=== PATIENT | female | born 1985 | race African-American/Black ===

== ENCOUNTER 2016-04-24 19:40 | Emergency (ER) ==
[2016-04-24 21:09] LABS: MANUAL DIFF NEEDED? NO
[2016-04-24 21:11] LABS: BASO% 0.2 % (0.0-0.8); EOS# 0.04 X1000 (0.0-0.7); EOS% 0.5 % (0.0-10.0); HEMATOCRIT 34.7 % (37.0-47.0); HEMOGLOBIN 11.6 g/dL (12.0-16.0); IMM GRAN# 0.04 X1000 (0.0-0.04); IMM GRAN% 0.5 % (0.0-0.5); LYMPH# 2.73 X1000 (1.2-3.4); LYMPH% 31.5 % (20.5-51.1); MCH 30.9 PG (27-31); MCHC 33.4 g/dL (33-37); MCV 92.5 FL (81-99); MONO# 0.68 X1000 (0.11-0.59); MONO% 7.8 % (1.7-9.3); MPV 9.9 FL (7.4-10.4); NEUT% 59.5 % (42.2-75.2); PLT 350 X1000 (130-400); RBC 3.75 XMIL (4.2-5.4)
--- NOTE | 2016-04-24 21:25 | PROVIDER DOCUMENTATION ---
HPI-General Adult - General Chief Complaint: Dizziness Stated Complaint: FERNANDES, NECK/ABD/RT LEG PAIN Time Seen by Provider: 04/24/16 20:50 Source: patient Allergies/Adverse Reactions: Patient Allergies Allergy/AdvReac Type Severity Reaction Status Date / Time No Known Allergies Allergy Verified 01/09/16 20:08 Home Medications: Home Medication List Medication Instructions Recorded Confirmed Last Taken Type Amoxicillin/Pot Clavulanate 875 mg PO Q12HR #14 tablet 01/09/16 Unknown Rx [Augmentin] Cetirizine [Zyrtec] 10 mg PO DAILY #20 tablet 01/09/16 Unknown Rx Methylprednisolone [Medrol Dosepak] 4 mg PO DIRECTED #1 package 01/09/16 Unknown Rx Docusate Sodium [Colace] 100 mg PO BID PRN PRN #20 capsule 04/24/16 Unknown Rx Phenazopyridine HCl [Pyridium] 100 mg PO TID #6 tablet 04/24/16 Unknown Rx Polyethylene Glycol 3350 [Miralax] 17 gm PO DAILY #14 powd.pack 04/24/16 Unknown Rx Sulfamethoxazole/Trimethoprim 1 each PO BID #14 tablet 04/24/16 Unknown Rx [Bactrim Ds Tablet] - History of Present Illness -Gen Adult Nature of Presenting Problems: 30 y/o F c/o FERNANDES, abd. pain, intermittent dizziness x 2-3 months. Pt states has nexplanon in place in [facility] and does not have the money to get it removed at this time- states should have been removed in early April. States generalized abd. pain. Denies . No other sxs at this time. FERNANDES is frontal in nature. States metromenorrhagia, but has had that for several years. Review of Systems - Adult - REVIEW OF SYSTEMS - ADULT Constitutional: reports: no symptoms reported. denies: chills, fever Eyes: reports: no symptoms reported. denies: blurred vision, double vision Ears, Nose, Mouth & Throat: reports: no symptoms reported. denies: ear pain, nose pain Cardiovascular: reports: no symptoms reported. denies: chest pain, palpitations Respiratory: reports: no symptoms reported. denies: dyspnea on exertion, shortness of breath Gastrointestinal: reports: see HPI, abdominal pain. denies: nausea, vomiting Genitourinary: reports: no symptoms reported. denies: dysuria, frequency Musculoskeletal: reports: no symptoms reported. denies: joint pain, joint swelling Integumentary: reports: no symptoms reported. denies: nail changes, rash Neurological: reports: see HPI, dizziness/vertigo, headache/migraines. denies: numbness, paresthesia Psychiatric: reports: no symptoms reported Endocrine: reports: no symptoms reported. denies: cold intolerance, heat intolerance Hematologic/Lymphatic: reports: no symptoms reported. denies: easy bruising, prolonged bleeding Allergic/Immunologic: reports: no symptoms reported All Other Systems: Reviewed and Negative Past History - Adult - PAST MEDICAL HISTORY-ADULT Review of Records: reports: Nursing Assessment Review, Medications Reviewed - SOCIAL HISTORY Smoking: cigarettes, less than 1 pack/day Provider spent 3-5 mins advising pt. on dangers of tobacco.: Discussed manners to quit use, and f/u contacts for add'l counseling. Physical Exam-General - PHYSICAL EXAM-ADULT Initial Vital Signs Reviewed: Yes - CONSTITUTIONAL General Appearance: alert, mild distress - EYES Eyes: pink conjunctivae - HEAD, EARS, NOSE, MOUTH & THROAT HENMT: normocephalic/atraumatic, moist mucous membranes - NECK Neck: normal inspection - RESPIRATORY Respiratory: lungs clear, normal breath sounds. negative: crackles, rales, rhonchi, stridor, wheezing - CARDIOVASCULAR Cardiovascular: regular rate, rhythm. negative: bradycardia, tachycardia - GASTROINTESTINAL (ABDOMEN) Abdominal Exam: normal bowel sounds, non tender, soft. negative: distended, guarding, rigid - MUSCULOSKELETAL Back Exam: normal inspection Extremity: normal gait - SKIN Integumentary: normal color, normal turgor, warm/dry - NEUROLOGIC Neurologic: exhaust tender II-XII nml as tested, grossly normal. negative: aphasia, EOM palsy, facial droop, focal weakness, motor weakness - PSYCHIATRIC Psych/Mental Status: normal mood/affect, normal thought content, normal thought process, oriented x 3 Progress - PLAN OF CARE/RESULTS Progress/Plan/Lab Results: Laboratory Tests 04/24/16 04/24/16 04/24/16 21:01 21:01 21:30 WBC 8.68 RBC 3.75 L Hgb 11.6 L Hct 34.7 L MCV 92.5 MCH 30.9 MCHC 33.4 RDW Std Deviation 12.8 Plt Count 350 MPV 9.9 Immature Gran % (Auto) 0.5 Neut % (Auto) 59.5 Lymph % (Auto) 31.5 [place] % (Auto) 7.8 Eos % (Auto) 0.5 Baso % (Auto) 0.2 Immature Gran # (Auto) 0.04 Neut # (Auto) 5.17 Lymph # (Auto) 2.73 [place] # (Auto) 0.68 H Eos # (Auto) 0.04 Baso # (Auto) 0.02 Sodium 139 Potassium 3.7 Chloride 103 Carbon Dioxide 22 L Anion Gap 14 BUN 12 Creatinine 0.7 Estimated GFR/1.73 m2 > 60 BUN/Creatinine Ratio 17 Glucose 101 POC Glucose Calculated Osmolality 277 Calcium 8.8 Total Bilirubin 0.27 AST 16 ALT 9 L Alkaline Phosphatase 97 Total Protein 7.6 Albumin 4.2 Globulin 3.4 Albumin/Globulin Ratio 1.2 Urine Source CLEAN CATCH Urine Color STRAW Urine Turbidity CLEAR Urine pH 6.5 Ur Specific [place] 1.008 Urine Protein NEGATIVE Ur Glucose (Stick) NEGATIVE Ur Ketones (Stick) NEGATIVE Urine Blood NEGATIVE Urine Nitrite NEGATIVE Urine Bilirubin NEGATIVE Urobilinogen Dipstick NORMAL Urine Leukocytes MODERATE A Urine WBC (Auto) 10-20 A Urine RBC (Auto) <10 U Epithel Cells (Auto) <10 Urine Bacteria (Auto) 2+ Urine Test Urine Opiates Screen Ur Oxycodone Screen Ur Methadone, Qual Ur Barbiturates Screen Ur Phencyclidine Scrn Ur Amphetamines Screen U Benzodiazepines Scrn Urine Cocaine Screen U Cannabinoids Screen 04/24/16 04/24/16 04/24/16 21:30 21:30 21:52 WBC RBC Hgb Hct MCV MCH MCHC RDW Std Deviation Plt Count MPV Immature Gran % (Auto) Neut % (Auto) Lymph % (Auto) [place] % (Auto) Eos % (Auto) Baso % (Auto) Immature Gran # (Auto) Neut # (Auto) Lymph # (Auto) [place] # (Auto) Eos # (Auto) Baso # (Auto) Sodium Potassium Chloride Carbon Dioxide Anion Gap BUN Creatinine Estimated GFR/1.73 m2 BUN/Creatinine Ratio Glucose POC Glucose 84 Calculated Osmolality Calcium Total Bilirubin AST ALT Alkaline Phosphatase Total Protein Albumin Globulin Albumin/Globulin Ratio Urine Source Urine Color Urine Turbidity Urine pH Ur Specific [place] Urine Protein Ur Glucose (Stick) Ur Ketones (Stick) Urine Blood Urine Nitrite Urine Bilirubin Urobilinogen Dipstick Urine Leukocytes Urine WBC (Auto) Urine RBC (Auto) U Epithel Cells (Auto) Urine Bacteria (Auto) Urine Test NEGATIVE Urine Opiates Screen NONE DETECTED Ur Oxycodone Screen NONE DETECTED Ur Methadone, Qual NONE DETECTED Ur Barbiturates Screen NONE DETECTED Ur Phencyclidine Scrn NONE DETECTED Ur Amphetamines Screen NONE DETECTED U Benzodiazepines Scrn NONE DETECTED Urine Cocaine Screen NONE DETECTED U Cannabinoids Screen NONE DETECTED Orders Category Date Time Status ED: Orthostatic Vital Signs (E as directed Care 04/24/16 21:02 Active FLAT/UPRIGHT ABD/1 VIEW CHEST [RAD] Stat Exams 04/24/16 22:33 Completed CBC WITH ELECTRONIC DIFF [HEME] Stat Lab 04/24/16 21:01 Completed COMPREHENSIVE METABOLIC PANEL [CHEM] Stat Lab 04/24/16 21:01 Completed TEST-URINE [PREG] Stat Lab 04/24/16 21:30 Completed URINALYSIS W/POSS RFLX CULT [URINALYSIS] Stat Lab 04/24/16 21:30 Completed URINE CULTURE [RM] Routine Lab 04/25/16 00:10 Results URINE DRUG SCREEN Stat Lab 04/24/16 21:30 Completed Butalbital/APAP/Caffeine [Fioricet] Med 04/25/16 00:00 Discontinued 1 each PO NOW ONE Promethazine [Phenergan] Med 04/25/16 00:00 Discontinued 25 mg PO NOW ONE Sulfamethoxazole/Tmp D.s. [Septra Ds] Med 04/25/16 00:00 Discontinued 1 each PO NOW ONE Vital Signs Temp Pulse Pulse Pulse Pulse Resp BP 04/24/16 23:57 92 H 18 159/98 04/24/16 21:51 80 73 78 04/24/16 19:55 98.9 F 102 H 16 171/113 BP BP BP Pulse Ox 04/24/16 23:57 100 04/24/16 21:51 169/89 171/101 182/94 04/24/16 19:55 100 No Known Allergies Allergy (Verified 01/09/16 20:08) Amoxicillin/Pot Clavulanate [Augmentin] 875 mg PO Q12HR #14 tablet 01/09/16 Cetirizine [Zyrtec] 10 mg PO DAILY #20 tablet 01/09/16 Methylprednisolone [Medrol Dosepak] 4 mg PO DIRECTED #1 package 01/09/16 Docusate Sodium [Colace] 100 mg PO BID PRN PRN #20 capsule 04/24/16 Phenazopyridine HCl [Pyridium] 100 mg PO TID #6 tablet 04/24/16 Polyethylene Glycol 3350 [Miralax] 17 gm PO DAILY #14 powd.pack 04/24/16 Sulfamethoxazole/Trimethoprim [Bactrim Ds Tablet] 1 each PO BID #14 tablet 04/24 I&O 04/25/16 04/26/16 04/27/16 06:59 06:59 06:59 Output Total 85 Balance -85 Laboratory 04/24/16 04/24/16 04/24/16 21:52 21:30 21:30 WBC RBC Hgb Hct MCV MCH MCHC RDW Std Deviation Plt Count MPV Immature Gran % (Auto) Neut % (Auto) Lymph % (Auto) [place] % (Auto) Eos % (Auto) Baso % (Auto) Immature Gran # (Auto) Neut # (Auto) Lymph # (Auto) [place] # (Auto) Eos # (Auto) Baso # (Auto) Sodium Potassium Chloride Carbon Dioxide Anion Gap BUN Creatinine Estimated GFR/1.73 m2 BUN/Creatinine Ratio Glucose POC Glucose 84 Calculated Osmolality Calcium Total Bilirubin AST ALT Alkaline Phosphatase Total Protein Albumin Globulin Albumin/Globulin Ratio Urine Source Urine Color Urine Turbidity Urine pH Ur Specific [place] Urine Protein Ur Glucose (Stick) Ur Ketones (Stick) Urine Blood Urine Nitrite Urine Bilirubin Urobilinogen Dipstick Urine Leukocytes Urine WBC (Auto) Urine RBC (Auto) U Epithel Cells (Auto) Urine Bacteria (Auto) Urine Test NEGATIVE Urine Opiates Screen NONE DETECTED Ur Oxycodone Screen NONE DETECTED Ur Methadone, Qual NONE DETECTED Ur Barbiturates Screen NONE DETECTED Ur Phencyclidine Scrn NONE DETECTED Ur Amphetamines Screen NONE DETECTED U Benzodiazepines Scrn NONE DETECTED Urine Cocaine Screen NONE DETECTED U Cannabinoids Screen NONE DETECTED 04/24/16 04/24/16 04/24/16 21:30 21:01 21:01 WBC 8.68 RBC 3.75 L Hgb 11.6 L Hct 34.7 L MCV 92.5 MCH 30.9 MCHC 33.4 RDW Std Deviation 12.8 Plt Count 350 MPV 9.9 Immature Gran % (Auto) 0.5 Neut % (Auto) 59.5 Lymph % (Auto) 31.5 [place] % (Auto) 7.8 Eos % (Auto) 0.5 Baso % (Auto) 0.2 Immature Gran # (Auto) 0.04 Neut # (Auto) 5.17 Lymph # (Auto) 2.73 [place] # (Auto) 0.68 H Eos # (Auto) 0.04 Baso # (Auto) 0.02 Sodium 139 Potassium 3.7 Chloride 103 Carbon Dioxide 22 L Anion Gap 14 BUN 12 Creatinine 0.7 Estimated GFR/1.73 m2 > 60 BUN/Creatinine Ratio 17 Glucose 101 POC Glucose Calculated Osmolality 277 Calcium 8.8 Total Bilirubin 0.27 AST 16 ALT 9 L Alkaline Phosphatase 97 Total Protein 7.6 Albumin 4.2 Globulin 3.4 Albumin/Globulin Ratio 1.2 Urine Source CLEAN CATCH Urine Color STRAW Urine Turbidity CLEAR Urine pH 6.5 Ur Specific [place] 1.008 Urine Protein NEGATIVE Ur Glucose (Stick) NEGATIVE Ur Ketones (Stick) NEGATIVE Urine Blood NEGATIVE Urine Nitrite NEGATIVE Urine Bilirubin NEGATIVE Urobilinogen Dipstick NORMAL Urine Leukocytes MODERATE A Urine WBC (Auto) 10-20 A Urine RBC (Auto) <10 U Epithel Cells (Auto) <10 Urine Bacteria (Auto) 2+ Urine Test Urine Opiates Screen Ur Oxycodone Screen Ur Methadone, Qual Ur Barbiturates Screen Ur Phencyclidine Scrn Ur Amphetamines Screen U Benzodiazepines Scrn Urine Cocaine Screen U Cannabinoids Screen - XRAY 1 XRAY Study: Chest, Abdomen XRAY Interpretation: mild constipation Departure - Departure Time of Disposition Order: 23:15 DIAGNOSIS: UTI (urinary tract infection) Qualifiers: Urinary tract infection type: acute cystitis Hematuria presence: without hematuria Qualified Code(s): N30.00 - Acute cystitis without hematuria Constipation Qualifiers: Constipation type: unspecified constipation type Qualified Code(s): K59.00 - Constipation, unspecified Disposition: HOME 01 Certified Medical Emergency: Emergent Condition: Stable Additional Instructions: Follow up with specialist for further management. Take medications as directed. Drink plenty of fluids. ED Follow Up Instructions: You have been treated by a care provider in the Emergency Department. These instructions are being provided to you so you can have an understanding of how to care for yourself upon discharge. Upon discharge from the Emergency Department, you are responsible for making arrangements for follow-up care by a physician of your choice. Take all prescribed medications as directed. Return to the Emergency Department immediately for any new or worsening symptoms. You may call the Physician Referral phone number at [phone] to obtain a list of Physicians who are taking new patients. Prescriptions: Sulfamethoxazole/Trimethoprim [Bactrim Ds Tablet] 1 each PO BID #14 tablet Docusate Sodium [Colace] 100 mg PO BID PRN PRN #20 capsule PRN Reason: Constipation Polyethylene Glycol 3350 [Miralax] 17 gm PO DAILY #14 powd.pack Phenazopyridine HCl [Pyridium] 100 mg PO TID #6 tablet Referrals: None,PCP [Primary Care Provider] - Forms: Return to School/Parent Work Instructions: Constipation, Adult, [id number], Urinary Tract Infection, Easy- to-Read Attestation - Physician/ DEBBI Attestation Patient care was provided by Advanced Practice Provider:: Yes Advanced Practice Provider:: Leonila Dukes Advanced Practice Provider documentation review:: The Mid-level provider documentation, treatment plan and medical decision making was reviewed by the physician who agrees with all treatment and medical decision making by the MLP.
[2016-04-24 21:39] LABS: AGAP 14; ALBUMIN 4.2 g/dL (3.5-5.0); ALKALINE PHOSPHATASE 97 U/L (32-104); BUN 12 mg/dL (8-22); CALCIUM 8.8 mg/dL (8.8-10.2); CHLORIDE 103 mmol/L (98-107); COSMO 277; GOT 16 U/L (10-30); GPT 9 U/L (10-36); POTASSIUM 3.7 mmol/L (3.5-5.1); SODIUM 139 mmol/L (136-145); TCO2 22 mmol/L (25-35); TOTAL BILIRUBIN 0.27 mg/dL (0.20-1.00); TOTAL PROTEIN 7.6 g/dL (6.3-8.3)
[2016-04-24 22:03] LABS: URINE MICRO REVIEW NEEDED? NO; URINE SOURCE CLEAN CATCH
[2016-04-24 22:06] LABS: BILIRUBIN URINE NEGATIVE (NEGATIVE); BLOOD URINE NEGATIVE (NEGATIVE); COLOR STRAW; GLUCOSE URINE NEGATIVE (NEGATIVE); LEUKOCYTES URINE MODERATE (NEGATIVE); NITRITE URINE NEGATIVE (NEGATIVE); PH URINE 6.5; PROTEIN URINE NEGATIVE (NEGATIVE); SP GRAVITY URINE 1.008; TURBIDITY URINE CLEAR (CLEAR); UROBILINOGEN URINE NORMAL (NORMAL)
[2016-04-24 22:07] LABS: UR EPITHELIAL CELLS <10 /HPF (<10); URINE BACTERIA 2+ /HPF; URINE CULTURE NEEDED? YES; URINE RBC <10 /HPF (<10)
[2016-04-24 22:27] LABS: UR AMPHETAMINES QUAL NONE DETECTED (NONE DETECT); UR BARBITUATES QUAL NONE DETECTED (NONE DETECT); UR BENZODIAZEPIN QUAL NONE DETECTED (NONE DETECT); UR CANNABINOIDS QUAL NONE DETECTED (NONE DETECT); UR COCAINE QUAL NONE DETECTED (NONE DETECT); UR METHADONE QUAL NONE DETECTED (NONE DETECT); UR OPIATES QUAL NONE DETECTED (NONE DETECT); UR OXYCODONE QUAL NONE DETECTED (NONE DETECT); UR PCP QUAL NONE DETECTED (NONE DETECT)
[2016-04-24 23:58] VITALS: BP 159/98
[2016-04-25] MEDS ORDERED: FIORICET PO ONE
[2016-04-25] MEDS ORDERED: PHENERGAN PO ONE
[2016-04-25] MEDS ORDERED: SEPTRA DS PO ONE
--- NOTE | 2016-04-25 08:24 | Diag Imaging Result Document ---
PROCEDURE NAME: FLAT/UPRIGHT ABD/1 VIEW CHEST - 04/24/2016 FLAT AND UPRIGHT AND CHEST, THREE VIEWS: FINDINGS: The lungs are well expanded. No pneumonia. No cardiomegaly. No free air beneath the diaphragm. There is jewelry overlying the lower lumbar spine. Stool is found in the colon. The bowel loops are not dilated. No organomegaly. No abnormal abdominal or pelvic calcifications. IMPRESSION: Mild constipation.
== END 2016-04-25 00:06 | disposition home or self-care (01) ==
LOC: ED 19:40
DX: N30.00 Acute cystitis without hematuria (principal); K59.00 Constipation, unspecified; R51 Headache; R42 Dizziness and giddiness; R10.84 Generalized abdominal pain; F17.210 Nicotine dependence, cigarettes, uncomplicated; Z71.6 Tobacco abuse counseling
CPT/HCPCS: 36415; 74022; 80053; 81001; 81025; 82948; 85025; 87088; 99284; G0480; 80324; 80345; 80346; 80349; 80353; 80358; 80361; 80365; 83992